=== PATIENT | male | born 1955 | race Caucasian/White ===

== ENCOUNTER → 2020-10-22 | Outpatient (CLI) | payer OTHER ==
--- NOTE | 2020-10-22 09:07 | KCIC ---
EXAM: CT coronary artery calcium screening; radiologist over read. HISTORY: Coronary artery calcium screening. Mixed hyperlipidemia. TECHNIQUE: Computed tomographic images of the chest were obtained without contrast. Multiplanar refor matting was performed. *One or more of the following individualized dose reduction techniques were utilized for this examina tion: 1. Automated exposure control. 2. Adjustment of the mA and/or kV according to patient size. 3. Use of iterative reconstruction technique. COMPARISON: None. FINDINGS: The heart is normal in size. There is mild dilatation of the ascending aorta to a caliber o f 4.0 cm. There is calcified atherosclerotic plaque involving the coronary arteries. There is no infi ltrate, pleural effusion or pneumothorax. There is posterior dependent atelectasis. There is a 4 mm n odule within the right minor pleural fissure, likely due to a fissural lymph node. There are implante d breast prostheses. There is no acute finding involving the upper abdomen or osseous structures. Coronary artery calcium score: Left main artery - 22.4 Left anterior descending - 137.3 Left circumflex - 37.8 Right coronary artery - 31.9 TOTAL = 229.4 IMPRESSION: 1. Coronary artery calcium score of 229.4. There is moderate atherosclerotic plaque. 2. 4 mm nodule along the right minor fissure, likely due to a fissural lymph node. Follow-up can be p erformed in one year if there are risk factors for pulmonary neoplasm. 3. Mild dilatation of the ascending aorta to a caliber of 4.0 cm. Electronically signed by: Montse Chambers MD (10/22/2020 9:05 AM) [id number]
== END ==
LOC: KCIC CT 08:06
PROVIDERS: ATTEND Family Medicine
DX: I25.10 Atherosclerotic heart disease of native coronary artery without angina pectoris (principal); I77.819 Aortic ectasia, unspecified site; J98.11 Atelectasis; Z98.82 Breast implant status; E78.2 Mixed hyperlipidemia
CPT/HCPCS: 75571

== ENCOUNTER → 2021-05-22 | Outpatient (CLI) | payer OTHER ==
--- NOTE | 2021-05-22 11:32 | KCIC ---
EXAM: CT CORONARY CALCIUM SCORING. HISTORY: Coronary risk factors. Calcium scoring is requested. Hypertension, smoking. COMPARISON: 10/22/2020. FINDINGS: Limited noncontrast CT of the chest was performed for coronary calcium scoring. Refer to e worksheets for full detail Coronary calcium scoring is as follows: RCA: 40.4. LM: 29.7. LAD: 160.6. LCx: 51.9. Total: 282.5. The included portions of the chest reveal the following. Bone windows reveal no suspicious lesions. I mages of the upper abdomen reveal no acute abnormality. Bilateral breast implants. There are no pathologically enlarged mediastinal lymph nodes. There is no pleural or pericardial effu agnes. The heart is not enlarged. Ascending aorta measures 4.2 cm at the main pulmonary artery. Redemonstrated 4 mm right minor fissural lymph node consistent with benign process. IMPRESSION: 1. Coronary calcium score 282.5. Implication: Definite, at least moderate atherosclerotic plaque. Risk of Coronary Artery Disease: Mild coronary artery disease highly likely, significant narrowings p ossible. 2. Ascending aortic ectasia measuring 4.2 cm at the level the main pulmonary artery. --- Exposure: One or more of the following individualized dose reduction techniques were utilized for thi s examination: 1. Automated exposure control 2. Adjustment of the mA and/or kV according to patient size 3. Use of iterative reconstruction technique. Electronically signed by: Swapnil Jewell MD (05/22/2021 11:29 AM) [id number]
== END ==
LOC: KCIC CT 08:13
PROVIDERS: ATTEND Family Medicine
DX: Z13.6 Encounter for screening for cardiovascular disorders (principal)
CPT/HCPCS: 75571